=== PATIENT | female | born 1970 | race Caucasian/White ===

== ENCOUNTER 2016-07-10 15:13 | Emergency (ER) | payer MEDICAID ==
[2016-07-10] MEDS ORDERED: METOCLOPRAMIDE 10 MG/2 ML VIAL ONE (17:41)
[2016-07-10] MEDS ORDERED: DIPHENHYDRAMINE 50 MG/ML VIAL ONE (17:41)
== END 2016-07-10 18:22 | disposition home or self-care (01) ==
LOC: ER 15:13
DX: G43.409 Hemiplegic migraine, not intractable, without status migrainosus (principal); Z79.899 Other long term (current) drug therapy
CPT/HCPCS: 70450; 96374; 96375